=== PATIENT | female | born 2000 | race Hispanic/Latino ===

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

== ENCOUNTER 2021-10-22 18:46 | Observation (INO) | payer OTHER, BC ==
[~2021-10-22] VITALS: Ht 160 cm; Wt 62.1 kg
[2021-10-22] MEDS ORDERED: 0.9%NACL 1000ML 1,000 ML IV ONE (19:00)
[2021-10-22] MEDS ORDERED: MORPHINE 4 MG SYG IVP ONE (19:00)
[2021-10-22] MEDS ORDERED: ONDANSETRON 4MG INJ IVP ONE (19:00)
[2021-10-22] MEDS ORDERED: IOHEXOL 350 MG/ML 100ML INFUS..BTL IV ONE (19:11)
[2021-10-22 21:15] LABS: APPEARANCE,URINE SL CLOUDY (CLEAR); BILIRUBIN,URINE NEGATIVE (NEGATIVE); COLOR,URINE YELLOW (YELLOW); GLUCOSE, URINE (UA) NEGATIVE (NEGATIVE); KETONES,URINE 5 mg/dL (NEGATIVE); LEUKOCYTE ESTERASE ,URINE NEGATIVE (NEGATIVE); NITRATE,URINE POSITIVE (NEGATIVE); OCCULT BLOOD,URINE MODERATE (NEGATIVE); PH,URINE 7.5 (5.0-8.0); PROTEIN,URINE NEGATIVE (NEGATIVE); UROBILINOGEN,URINE 0.2 mg/dL (0.2-1.0)
[2021-10-22 21:23] LABS: RBC,URINE 51-100 /HPF (0-1)
[2021-10-22 21:24] LABS: BACTERIA,URINE Rare /HPF (None Seen); SQUAMOUS EPITHELIAL CELL,UR Rare /HPF (0-2)
[2021-10-22 22:38] LABS: BASOPHILS % (AUTO) 0.2 % (0.0-5.0); EOSINOPHILS % (AUTO) 0.3 % (0.0-8.0); HEMATOCRIT 37.2 % (36-48); LYMPHOCYTES % (AUTO) 16.7 % (21.0-51.0); MEAN CORPUSCULAR HEMOGLOBIN 30.2 pg (27.0-33.0); MEAN CORPUSCULAR HGB CONC 34.1 g/dL (32.0-36.0); MEAN CORPUSCULAR VOLUME 88.4 fL (80-100); MONOCYTES % (AUTO) 4.2 % (3.0-13.0); NEUTROPHILS % (AUTO) 78.4 % (40.0-77.0); PLATELET COUNT (AUTO) 257 K/uL (130-400); RED BLOOD CELL COUNT(AUTO) 4.21 MIL/uL (4.00-5.50); RED CELL DISTRIBUTION WIDTH 12.8 % (11.0-15.5); WHITE BLOOD COUNT (AUTO) 9.3 K/uL (4.8-10.8)
[2021-10-22 22:53] LABS: CREATININE 0.6 mg/dL (0.5-1.5); POTASSIUM 3.6 mmol/L (3.5-5.1)
[2021-10-22 23:01] LABS: ALBUMIN 3.9 g/dL (3.5-5.0); BILIRUBIN,TOTAL 0.7 mg/dL (0.2-1.0); TOTAL PROTEIN, SERUM 6.8 g/dL (6.0-8.3)
[2021-10-22 23:05] VITALS: BP 115/63
[2021-10-22] MEDS: MORPHINE 2 MG SYG IVP PRN (23:23)
[2021-10-23 03:26] VITALS: BP 117/52
[2021-10-23] MEDS: MORPHINE 2 MG SYG IVP PRN (04:35)
[2021-10-23 07:00] VITALS: BP 99/52
[2021-10-23 11:15] VITALS: BP 112/71
[2021-10-23] MEDS ORDERED: ACETAMINOPHEN WITH CODEINE 1 TAB TAB PO PRN (11:30)
[2021-10-23 15:30] VITALS: BP 92/42
[2021-10-23] MEDS ORDERED: MAGNESIUM CITRATE 296 ML SOLUTION PO SCH (16:30)
[2021-10-23] MEDS ORDERED: KETOROLAC 30MG VIAL (30MG/ML) IVP PRN (16:30)
[2021-10-23] MEDS: 0.9%NACL 1000ML 1,000 ML IV SCH (16:51)
[2021-10-23 19:39] VITALS: BP 106/52
[2021-10-23 23:29] VITALS: BP 95/48
[2021-10-24 03:22] VITALS: BP 102/56
[2021-10-24] MEDS: 0.9%NACL 1000ML 1,000 ML IV SCH (03:37)
[2021-10-24 07:30] VITALS: BP 102/54
[2021-10-24 11:00] VITALS: BP 99/51
== END 2021-10-24 14:07 | disposition home or self-care (01) ==
LOC: EDH 18:46 → EDHIP 20:39 → 4DH 22:54
PROVIDERS: ADMIT Surgery; ATTEND Surgery
DX: S30.1XXA Contusion of abdominal wall, initial encounter (principal); K59.00 Constipation, unspecified; V89.2XXA Person injured in unspecified motor-vehicle accident, traffic, initial encounter; Y93.89 Activity, other specified; Y92.410 Unspecified street and highway as the place of occurrence of the external cause; M54.6 Pain in thoracic spine; M54.50 Low back pain, unspecified; Z79.899 Other long term (current) drug therapy
CPT/HCPCS: 36415; 70450; 71260; 72125; 73090; 74177; 80053; 81001; 83690; 84702; 85025; 87088; 96361 ×2; 96374; 96375 ×2; 96376 ×2; 99291; G0378 ×41; J1885; J2270; J2405; J7030 ×2; Q9967